=== PATIENT | female | born 1955 | race American Indian/Alaskan Native ===

== ENCOUNTER 2017-01-25 15:22 | Outpatient (CLI) | payer BC | END 2017-01-25 15:23 | disposition home or self-care (01) | LOC: LABHHL 15:22 | PROVIDERS: ATTEND Internal Medicine Gastroenterology | DX: Z12.11 Encounter for screening for malignant neoplasm of colon (principal) | CPT/HCPCS: 88305 ==

== ENCOUNTER 2017-02-23 12:17 | Outpatient (CLI) | payer BC ==
--- NOTE | 2017-02-23 13:54 | XRay Report ---
Left hip 2 views: History: Chronic hip pain. Findings: No bony or articular margin no fracture dislocation or soft tissue calcification. Impression No definite bony or articular left hip.
== END 2017-02-23 12:18 | disposition home or self-care (01) ==
LOC: SPVIMAG 12:17
PROVIDERS: ATTEND Internal Medicine
DX: G89.29 Other chronic pain (principal); M25.552 Pain in left hip

== ENCOUNTER 2018-09-21 12:00 | Outpatient (CLI) | payer BC ==
--- NOTE | 2018-09-21 13:01 | XRay Report ---
XRAY CHEST TWO VIEWS: 09/21/18 12:00:00 CLINICAL: Cough. COMPARISON: None FINDINGS: Normal heart and pulmonary vasculature. The lungs are normally expanded and clear. No airspace disease or pleural effusion. Aortic tortuosity. Moderate spondylosis of the thoracic spine. IMPRESSION: No acute cardiopulmonary process and no pneumonia.Hypertensive changes in the aorta.
== END 2018-09-21 12:01 | disposition home or self-care (01) ==
LOC: SPVIMAG 12:00
PROVIDERS: ATTEND Internal Medicine
DX: R05 Cough (principal); M47.894 Other spondylosis, thoracic region
CPT/HCPCS: 71046